=== PATIENT | male | born 1955 | race Caucasian/White ===

== ENCOUNTER 2016-10-01 10:38 | Outpatient (CLI) | payer MEDICARE, BC ==
[~2016-10-01] VITALS: Ht 180.3 cm; Wt 83.6 kg
--- NOTE | ~2016-10-01 | HEMODYNAMI ---
PATIENT:LIOR CARLTON MEDICAL RECORD: [id number] : 51 LOCATION:[facility] ADMISSION DATE: 10/01/16 Generatedon:10/01/201613:41 Patient name: LIOR CARLTON Patient #: [id number] SSN: : 1955 Date of study: 10/01/2016 Page: Of Hemodynamic Procedure Report Patient Data Patient Demographics Procedure consent was obtained First Name: LIOR Gender: Male Last Name: BIANKA : 1955 Patient #: [id number] Age: 61 year(s) Race: Unknown Additional ID: [id number] Contact details [address]: [address] [place] [address] State: [place] City: [place] Zip code: [address] Admission Admission Data Admission Date: 10/01/2016 Admission Time: 10:38 Height (in.): 71 BSA: 2.04 (m2) Height (cm.): 180.34 BMI: 25.66 (kg/m2) Weight (lbs.): 184 Weight (kg.): 83.46 Lab Results Lab Result Date: 10/01/2016 Lab Result Time: 0:00 Biochemistry Name Units Result Min Max BUN mg/dl 9 --(*---)-- 7 18 Creatinine mg/dl 0.8 --(-*--)-- 0.6 1.3 CBC Name Units Result Min Max Hemoglobin g/dl 13.9 --(*---)-- 13.5 17.5 Procedure Procedure Types Cath Procedure Diagnostic Procedure LHC LHC w/Coronaries PCI Procedure Coronary Stent Initial Miscellaneous Procedures Moderate Sedation up to 30 minutes Procedure Description Procedure Date Procedure Date: 10/01/2016 Procedure Start Time: 13:07 Procedure End Time: 13:40 Procedure Staff Name Function Kyle Kerr MD Performing Physician Keshav Torres RT Scrub Priyanka Camacho RN Nurse Hira Jordan RT Monitor Procedure Data Cath Procedure Fluoroscopy Diagnostic fluoroscopy Total fluoroscopy Time: 4.3 time: 4.3 min min Diagnostic fluoroscopy Total fluoroscopy dose: 781 dose: 781 mGy mGy Contrast Material Contrast Material Type Amount (ml) Isovue 300 133 Entry Location Entry Primary Successful Side Size Upsize Upsize Entry Closure Succes sful Closure Location (Fr) 1 (Fr) 2 (Fr) Remarks Device Remarks Femoral Right 5 Fr 6 Fr Exoseal artery Short Estimated blood loss: 10 ml Diagnostic catheters Device Type Used For End Catheter Placement Cordis 5Fr JL 4.0 Coronary Catheter (MP) Angiography Cordis 5Fr 3DRC Catheter Coronary (MP) Angiography Cordis 5Fr Pigtail LV Angiography Catheter (MP) Procedure Complications No complications Procedure Medications Medication Administration Route Dosage Oxygen NC 2 l/min Heparin Flush Bag added to field 2 bags (1000units/500ml NS) Lidocaine 2% added to field 20 Versed I.V. 1 mg Fentanyl I.V. 50 mcg Versed I.V. 1 mg Fentanyl I.V. 50 mcg Versed I.V. 1 mg Fentanyl I.V. 50 mcg Heparin Bolus I.V. 8300 units Plavix P.O. 600 mg Hemodynamics Rest BSA: 2.04 (m2) O2 Consumption: Estimated: 226.29 (ml/min) O2 Consumption indexed : Estimated:110.93 (ml/min/m) Heart Rate: 54 (bpm) Pressure Samples Time Site Value (mmHg) Purpose Heart Use Rate(bpm) 13:15 LV 188/8,25 Snapshot 54 Gradients Valve Time Site Site Mean SEP/DFP Peak To Heart Use 1 2 (mmHg) (sec/min) Peak Rate (mmHg) (bpm) Aortic 13:16 LV AO 58 Snapshots Pre Cath Intra NCS Post Cath Vital Signs Time Heart Resp SPO2 etCO2 [id number] NIBP (mmHg) Rhythm Pain Sedation Rate (ipm) (%) (mmHg) (mmHg) Status Level (bpm) 12:55:37 58 20 98 0 0 173/93(106) NSR 0 (11) 10(A) , No pain 12:59:59 55 12 98 0 0 166/90(131) NSR 0 (11) 10(A) , No pain 13:04:21 53 18 96 0 0 144/82(96) NSR 0 (11) 10(A) , No pain 13:08:33 50 16 95 0 0 122/83(99) NSR 0 (11) 10(A) , No pain 13:13:26 54 17 99 0 0 167/97(148) NSR 0 (11) 9(A) , No pain 13:17:44 53 14 96 0 0 170/91(157) NSR 0 (11) 9(A) , No pain 13:22:04 51 16 95 0 0 142/85(114) NSR 0 (11) 9(A) , No pain 13:26:18 54 16 95 0 0 144/80(123) NSR 0 (11) 9(A) , No pain 13:30:31 55 16 95 0 0 133/82(104) NSR 0 (11) 9(A) , No pain 13:32:09 53 16 96 0 0 127/85(104) NSR 0 (11) 10(A) , No pain 13:37:08 52 11 95 0 0 Measuring NSR 0 (11) 10(A) , No pain 13:37:14 52 11 95 0 0 149/86(124) NSR 0 (11) 10(A) , No pain Medications Time Medication Route Dose Verified Delivered Reason Notes Effectiveness by by 12:54:41 Oxygen NC 2 Kyle Priyanka Per physician l/min Dylan Camacho RN 12:54:50 Heparin Flush added 2 Kyle Kyle used for Bag to bags Dylan Kerr MD procedure (1000units/500ml field NS) 12:54:58 Lidocaine 2% added 20ml Kyle Kyle used for to vial Dylan Kerr MD procedure field 13:06:09 Versed I.V. 1 mg Kyle Priyanka for sedation Dylan Camacho RN 13:06:13 Fentanyl I.V. 50 Kyle Priyanka for sedation mcg Dylan Camacho RN 13:08:21 Versed I.V. 1 mg Kyle Priyanka for sedation Dylan Camacho RN 13:08:29 Fentanyl I.V. 50 Kyle Priyanka for sedation mcg Dylan Camacho RN 13:10:38 Versed I.V. 1 mg Kyle Priyanka for sedation Dylan Camacho RN 13:10:41 Fentanyl I.V. 50 Kyle Priyanka for sedation mcg Dylan Camacho RN 13:22:17 Heparin Bolus I.V. 8300 Kyle Priyanka for dose units Dylan Camacho RN anticoagulation verified with dr kerr 13:34:51 Plavix P.O. 600 Kyle Mathew for mg Dylan Camacho RN antiplatelet therapy Procedure Log Time Note 12:41:03 ACC Patient presents with Stable Angina CCS Anginal Class 2--Slight limitation of ordinary activity. 12:41:05 Diagnostic Cath status Elective 12:41:07 Keshav Torres RT(R) sent for patient. Start room use. 12:41:09 Time tracking: Regular hours 12:41:14 Plan of Care:Hemodynamics will remain stable., Cardiac rhythm will remain stable., Comfort level will be maintained., Respiratory function will remain adequate., Patient/ family verbilizes understanding of procedure., Procedure tolerated without complication., Recovers from procedure without complications.. 12:52:05 Patient received from Pre/Post Procedure Room to CCL 1 Alert and oriented. Tansferred to table in Supine position. 12:52:06 Warm blankets applied, and gala hugger turned on for patient comfort. 12:52:07 Correct patient and procedure confirmed by team. 12:52:08 Signed procedure consent form obtained from patient. 12:52:08 ECG and BP/O2 sat monitors applied to patient. 12:54:27 Vital chart was started 12:54:41 Oxygen 2 l/min NC was given by Priyanka Camacho RN; Per physician; 12:54:50 Heparin Flush Bag (1000units/500ml NS) 2 bags added to field was given by Kyle Kerr MD; used for procedure; 12:54:58 Lidocaine 2% 20ml vial added to field was given by Kyle Kerr MD; used for procedure; 13:02:10 Rhythm: sinus rhythm 13:02:12 Full Disclosure recording started 13:04:20 H&P Date Dictated: 10/01/2016 New H&P dictated by physician.. 13:04:25 Pre-procedure instructions explained to patient. 13:04:26 Pre-op teaching completed and patient verbalized understanding. 13:04:27 Family in waiting room. 13:04:28 Patient NPO since Midnight. 13:04:31 Is the patient allergic to Iodine/contrast media? No. 13:04:38 Is patient on blood thinner?No 13:04:44 ACC The patient was administered the following blood thiners within the last 24 hours: None 13:04:53 Patient diabetic? No. 13:04:56 Previous problem with sedation/anesthesia? No ? 13:04:57 Snore? Yes 13:04:59 Sleep apnea? Yes 13:05:00 Deviated septum? No 13:05:01 Opens mouth fully? Yes 13:05:03 Sticks out tongue? Yes 13:05:08 Airway obstruction? Yes COPD 13:05:14 Dentures? No ? 13:05:16 Pre procedure: right dorsailis pedis pulse 1+ Palpable, but thready & weak; easily obliterated 13:05:19 Modified Wan's test Ulnar > 7 seconds. 13:05:26 FAILED ALLENS 13:05:30 Patient pain scale 0/10 ?. 13:05:35 IV patent on arrival in left forearm with 0.9% NaCl at [facility]. 13:05:38 Lab results completed and on chart. 13:05:44 Right groin area was prepped with chlora-prep and draped in sterile fashion 13:05:45 Alarms reviewed by R. N. 13:05:45 Sharps counted by scrub and verified by R.N. 13:05:46 --------ALL STOP TIME OUT------ 13:05:47 Final Timeout: patient, procedure, and site verified with staff and physician. All members of the team are in agreement. 13:05:50 Right groin site verified by team. 13:05:56 Physical assessment completed. ASA score P 2 - A patient with mild systemic disease as per Kyle Kerr MD. 13:06:00 Sedation plan: IV Moderate Sedation Versed, Fentanyl 13:06:09 Versed 1 mg I.V. was given by Priyanka Camacho RN; for sedation; 13:06:13 Fentanyl 50 mcg I.V. was given by Priyanka Camacho RN; for sedation; 13:07:00 Zero performed for pressure channel P1 13:07:25 Use device set Femoral Dx 13:07:27 Tegaderm 4 x 4 opened to sterile field. 13:07:29 Acist Hand Control opened to sterile field. 13:07:29 Acist Manifold opened to sterile field. 13:07:30 Acist Syringe opened to sterile field. 13:07:31 Bag Decanter opened to sterile field. 13:07:31 Medline Cath Pack opened to sterile field. 13:07:31 Terumo 5Fr [place] Sheath opened to sterile field. 13:07:32 St Kelvin 260cm J .035 wire opened to sterile field. 13:07:34 Diagnostic Infinity 5Fr Multipack catheter opened to sterile field. 13:07:42 Procedure started. 13:07:45 Local anesthetic to right femoral artery with Lidocaine 2% by Kyle Kerr MD.INITIAL ACCESS ONLY 13:08:21 Versed 1 mg I.V. was given by Priyanka Camacho RN; for sedation; 13:08:29 Fentanyl 50 mcg I.V. was given by Priyanka Camacho RN; for sedation; 13:09:54 A 5 Fr sheath was inserted into the Right Femoral artery 13:10:05 A Cordis 5Fr JL 4.0 Catheter (MP) was advanced over the wire and used for Coronary Angiography. 13:10:06 Zero performed for pressure channel P1 13:10:08 Zero performed for pressure channel P1 13:10:10 Zero performed for pressure channel P1 13:10:13 Zero performed for pressure channel P1 13:10:38 Versed 1 mg I.V. was given by Priyanka Camacho RN; for sedation; 13:10:41 Fentanyl 50 mcg I.V. was given by Priyanka Camacho RN; for sedation; 13:10:58 LCA angiography performed. 13:12:07 Catheter exchanged over wire. 13:12:12 A Cordis 5Fr 3DRC Catheter (MP) was advanced over the wire and used for Coronary Angiography. 13:12:38 Lab Result : Hemoglobin 13.9 g/dl 13:12:38 Lab Result : Creatinine 0.8 mg/dl 13:12:38 Lab Result : BUN 9 mg/dl 13:13:04 Patient Height : 71 inches 13:13:07 Patient Weight : 184 lbs 13:13:17 Baseline sample Acquired. 13:13:49 RCA angiography performed. 13:14:37 Catheter exchanged over wire. 13:14:41 Zero performed for pressure channel P1 13:14:46 Zero performed for pressure channel P1 13:14:51 Zero performed for pressure channel P1 13:15:10 A Cordis 5Fr Pigtail Catheter (MP) was advanced over the wire and used for LV Angiography. 13:15:54 LV angiography performed. 13:15:55 LV gram done using ZELAYA 13:16:00 Injector settings: Ml/sec: 10, Volume: 20, 13:16:02 LV hemodynamics recorded. 13:16:26 EF : 45 % 13:16:40 Catheter exchanged over wire. 13:17:20 Terumo 6Fr [place] Sheath opened to sterile field. 13:17:20 CelePostW [place] 2 J-tip 300cm 0.014 guide wir opened to sterile field. 13:17:21 NuggetaixCompak Inflation Kit opened to sterile field. 13:17:21 High Pressure Extension Tubing (Kerr) opened to sterile field. 13:17:47 Cordis 6FR XBLAD 3.5 guide catheter opened to sterile field. 13:19:33 Sheath upsized to a 6 Fr Short. 13:19:43 6 Fr XBLAD 3.5 guide catheter was inserted over the wire 13:19:53 ACC PCI Site: pLAD has 80% stenosis. 13:19:55 ACC Pre-intervention HEIDY Flow is 3. 13:21:17 BMW wire advanced. 13:22:17 Heparin Bolus 8300 units I.V. was given by Priyanka Camacho RN; for anticoagulation; dose verified with dr kerr 13:24:18 Wire advanced across lesion. 13:27:22 Inflation Number: 1 A Medtronic Integrity 3.0 X 22 stent was prepped and advanced across the Prox LAD. The stent was deployed at 14 [place] for 0:10 (min:sec). 13:29:48 Cordis 6Fr Exoseal opened to sterile field. 13:30:31 ACC Post-intervention HEIDY Flow is 3. 13:30:32 Stent catheter was removed intact over wire. 13:30:33 Wire removed. 13:30:33 Guide catheter removed. 13:30:44 Sheath removed intact; hemostasis achieved with Exoseal to the Right Femoral artery. 13:30:46 Procedure ended.(Physican Out) 13:31:03 Fluoroscopy time 04.30 minutes. 13:31:07 Fluoroscopy dose: 781 mGy 13:31:07 Flurop Dose total: 781 13:31:14 Contrast amount:Isovue 300 133ml. 13:31:21 Sharps counted by scrub and verified by R.N. 13:31:24 Insertion/operative site no bleeding no hematoma. 13:31:27 Post-op/insertion site Right Femoral artery dressed using a 4 x 4 and Tegaderm. 13:31:28 Post Procedure Pulses reassessed and unchanged 13:31:31 Post-procedure physical assessment completed. ASA score P 2 - A patient with mild systemic disease as per Kyle Kerr MD. 13:31:33 Post procedure rhythm: unchanged. 13:31:36 Estimated blood loss: 10 ml 13:31:37 Post procedure instruction explained to patient.Patient verbalizes understanding. 13:31:38 Patient needs reinforcement of post procedure teaching. 13:31:47 Procedure type changed to Cath procedure, Diagnostic procedure, LHC, LHC w/Coronaries, PCI procedure, Coronary Stent Initial, Miscellaneous Procedures, Moderate Sedation up to 30 minutes 13:31:51 Procedure Complication : No complications 13:33:52 Procedure and supply charges have been captured, reviewed, submitted and are correct. 13:34:51 Plavix 600 mg P.O. was given by Priyanka Camacho RN; for antiplatelet therapy; 13:40:09 Vital chart was stopped 13:40:09 See physician's report for complete and final results. 13:40:11 Report given to Pre/Post Procedure Room. 13:40:27 Patient transfered to Pre/Post Procedure Room with Stretcher. 13:40:29 Procedure ended. 13:40:29 Full Disclosure recording stopped 13:40:38 ACC-PCI Only Patient was given prescriptions, or instructed by Kyle Kerr MD to start/continue the following medications upon discharge: Plavix 13:40:40 End room use (Document Last) Intervention Summary Intervention Notes Time ActionType Lesion and Equipment Action# Pressure Duration Attributes Used 13:27:22 Place stent Prox LAD Medtronic 1 14 00:10 Integrity 3.0 X 22 stent Device Usage Item Name Manufacture Quantity Catalog Hospital Part Current Minimal L ot# / Number Charge Number Stock Stock Serial# Code Tegaderm 4 3M 1 [id number] [id number] 432953 5 x 4 Acist Hand Acist 1 95324 811368 218013 274693 5 DraftKings Acist Acist 1 83344 978460 605168 299263 5 Manifold Medical Systems Inc Acist Acist 1 22409 022592 037959 588141 20 Syringe Medical Systems Inc Bag Microtek 1 2002S 536818 45670 537780 5 Decanter Medical Inc. Medline Cardinal 1 [id number] 824210 73887 743709 5 Cath Pack Health Terumo 5Fr Terumo 1 [id number] 988778 670079 825722 [address] Kelvin 1 [id number] 787840 261069 911136 30 260cm J .035 wire Diagnostic Cardinal 1 [id number] 326554 38062 828139 30 Infinity Health 5Fr Multipack catheter Cordis 5Fr Cardinal 1 [id number] 5 JL 4.0 Health Catheter (MP) Cordis 5Fr Cardinal 1 434121 5 3DRC Health Catheter (MP) Cordis 5Fr Cardinal 1 840848 5 Pigtail Health Catheter (MP) Terumo 6Fr Terumo 1 [id number] 389451 565105 676826 40 [place] Sheath Driscoll BMW Driscoll 1 [id number] 450862 499478 396621 5 [place] 2 Vascular J-tip 300cm 0.014 guide wir Merit Merit 1 [id number] 032714 078325 465610 15 BasixCompak Medical Inflation Kit High Merit 1 [id number] 307836 77429 318076 10 Pressure Medical Extension Tubing (Kerr) Cordis 6FR Cardinal 1 [id number] 367129 430748 536579 10 XBLAD 3.5 Health guide catheter Medtronic Medtronic 1 [id number] 853975 255912 211354 1 0 [id number] Integrity 3.0 X 22 stent Cordis 6Fr Cardinal 1 [id number] 782765 117920 479125 10 [facility] Livestream Signature Audit [place] Stage Time Signature Unsigned Intra-Procedure 10/01/2016 Hira Jordan 1:40:57 PM RT(R) Signatures Monitor : Hira Jordan RT Signature : Date : Time : [facility] [address] [facility] [place] [address]
[2016-10-01] MEDS ORDERED: DIOVAN160 MG PO (11:25)
[2016-10-01] MEDS ORDERED: NEXIUM40 MG PO (11:25)
[2016-10-01] MEDS ORDERED: XYZAL5 MG PO (11:25)
[2016-10-01] MEDS ORDERED: MOBIC7.5 MG PO (11:26)
[2016-10-01] MEDS ORDERED: BENTYL10 MG PO (11:26)
[2016-10-01] MEDS ORDERED: BAYER CHEWABLE81 MG PO (11:27)
[2016-10-01 11:34] VITALS: BP 148/85; Ht 180.3 cm; Wt 83.6 kg
[2016-10-01 11:53] LABS: BASOPHILS 0.3 % (0.0-2.0); CALC OSMOLALITY 283 mosm/kg (275-300); CARBON DIOXIDE 23.9 mmol/L (21.0-32.0); CHLORIDE - SERUM 108 mmol/L (98-107); CREATININE - SERUM 0.8 mg/dL (0.6-1.3); EOSINOPHILS 2.5 % (0-7); GLUCOSE 93 mg/dL (74-106); HEMATOCRIT 42.3 % (42.0-54.0); HEMOGLOBIN 13.9 g/dL (13.5-17.5); IMMATURE GRANULOCYTES 0.3 % (0-5); LYMPHOCYTES 28.5 % (15-50); MCH 33.9 pg (26.0-34.0); MCHC 32.9 g/dL (31.0-37.0); MCV 103.2 fL (80.0-100.0); MEAN PLATELET VOLUME 10.2 fL (7.4-10.4); MONOCYTES 11.9 % (2-11); NEUTROPHILS 56.5 % (40-80); PLATELET COUNT 236 10x3/uL (130-400); RDW 12.8 % (11.5-14.5); SODIUM 143 mmol/L (136-145); WBC 7.7 10x3/uL (4.8-10.8); eGFR NON AFRICAN AMERICAN > 90 mL/min (90-120)
[2016-10-01 11:54] LABS: UREA NITROGEN 9 mg/dL (7-18)
[2016-10-01] MEDS ORDERED: PLAVIX75 MG PO (13:46)
--- NOTE | 2016-10-01 15:31 | NUR ---
1400-RIGHT GROIN CDI, NO HEMATOMA OR BLEEDING NOTED, SOFT TO TOUCH 1445-NO CHANGES IN GROIN, DENIES CHEST PAIN
--- NOTE | 2016-10-21 08:17 | HP ---
PATIENT: LIOR LINN MEDICAL RECORD: [id number] ACCOUNT: [id number] LOCATION:[place] : 51 ADMISSION DATE: 10/01/16 HISTORY AND PHYSICAL EXAMINATION DATE OF SERVICE: 10/01/2016 HISTORY OF PRESENT ILLNESS: Mr. Linn is a 61-year-old gentleman recently seen in clinic. He has a long history of COPD. He has been having worsening shortness of breath. His symptoms seemed different from his COPD. A recent stress test was performed, which revealed inferior wall ischemia. He was subsequently referred for cardiac catheterization. PAST MEDICAL HISTORY: 1. COPD. 2. Hypertension. MEDICATIONS: Aspirin daily and Nexium 20 mg daily. HABITS: He continues to smoke a pack per day. PHYSICAL EXAMINATION: VITAL SIGNS: Blood pressure is 140/82, pulse is 84. NECK: No JVD or bruit. CHEST: Clear to auscultation bilaterally. No wheezes or rales. CARDIAC: Regular rate and rhythm. No S4, no S3, no murmur. ABDOMEN: Soft, nontender. No masses. No bruits. EXTREMITIES: Pulses 2+ bilaterally. No edema. IMPRESSION: 1. Angina. With concerning symptoms of shortness of breath, may very well be an anginal variant. His recent stress test revealed inferior wall ischemia. PLAN: We will proceed with cardiac catheterization. TRANSINT:[id number] Voice Confirmation ID: [id number] DOCUMENT ID: [id number] LILIAN CA M.D. at 0817 CC: [id number] DICTATION DATE: 10/01/16 1341 PRECISION ASSEMBLY INSPECTOR: 10/01/16 1512 [facility] CLI 10/01/16 [place] [address] [place] [address]
--- NOTE | 2016-10-21 08:17 | OP ---
PATIENT NAME: LIOR CARLTON MEDICAL RECORD: [id number] :51 LOCATION:[facility] ADMISSION DATE: SURGEON: LILIAN CA M.D. DATE OF OPERATION: 10/01/2016 REFERRING PHYSICIAN: Dr. Segundo Muir at [place], [place]. PROCEDURES PERFORMED: 1. Selective coronary angiography. 2. Left heart catheterization with ventriculogram. 3. PTCA and stent placed in LAD. INDICATION: A 61-year-old gentleman presents with symptoms of angina. Recent Cardiolite stress test revealed inferior ischemia. EQUIPMENT USED: Diagnostic 5-Filipino JL4, Panda right, pigtail catheter. INTERVENTION: 6-Filipino XB LAD guide, BMW guide wire, 3.0 x 22 mm Integrity stent. TECHNIQUE: A 5-Filipino sheath was inserted in retrograde fashion in the right common femoral artery. Next, selective coronary angiography was performed in standard views using 5-Filipino JL4 and Panda right. Left heart catheterization performed using pigtail catheter. CORONARY ANATOMY: 1. Left main: Left main trunk is moderate in caliber. It gives rise to the LAD and circumflex. There is no obstruction. 2. LAD: This is a large caliber vessel extending to the apex. The proximal vessel has an ulcerated 90% stenosis. 3. Circumflex: This vessel is moderate in caliber. It is a smooth-walled vessel and appears angiographically normal. 4. Right coronary: This vessel is moderate in caliber and dominant. The mid to distal segment demonstrates a very long 90% stenosis. The distal vessels have good caliber and has no obstruction. 5. Left ventricle: Left ventricle is normal in size. There is mild LV dysfunction noted. Estimated ejection fraction of 45%. DESCRIPTION OF INTERVENTION: A 6-Filipino sheath was inserted in retrograde fashion in the right common femoral artery. Next, 100 units per kilogram of heparin was infused. A 6-Filipino XB LAD guide was advanced and engaged in the left main coronary artery. Next, a BMW guide wire was placed in the distal LAD. A 3.0 x 22 mm Integrity stent was placed across the stenosis and deployed at 14 atmospheres. Injection reveals stent to be widely patent with 0% residual stenosis. There is marked improvement in distal flow. At this point, the wire and guide were removed. IMPRESSION: Successful percutaneous transluminal coronary angioplasty and stent to the LAD with 0% residual stenosis. PLAN: I will stage him and bring him back for stenting to the right coronary artery in 1 week. TRANSINT:[id number] Voice Confirmation ID: [id number] DOCUMENT ID: [id number] OPERATIVE REPORT [id number] LIOR CARLTON TIMOTHY E M.D. at 0817 CC: [id number] DICTATION DATE: 10/01/16 1339 J2EE SOFTWARE ENGINEER: 10/01/16 1756 [facility] CLI 10/01/[address] [address]
== END 2016-10-01 18:00 | disposition home or self-care (01) ==
LOC: D.CATH 10:38
PROVIDERS: Internal Medicine Cardiovascular Disease
DX: I25.119 Atherosclerotic heart disease of native coronary artery with unspecified angina pectoris (principal); J44.9 Chronic obstructive pulmonary disease, unspecified; F17.200 Nicotine dependence, unspecified, uncomplicated; I10 Essential (primary) hypertension; Z79.82 Long term (current) use of aspirin; Z79.899 Other long term (current) drug therapy

== ENCOUNTER 2016-10-08 11:11 | Outpatient (CLI) | payer MEDICARE, BC ==
[~2016-10-08] VITALS: Ht 180.3 cm; Wt 84.1 kg
--- NOTE | ~2016-10-08 | HEMODYNAMI ---
PATIENT:LIOR CARLTON MEDICAL RECORD: [id number] : 51 LOCATION:[facility] ADMISSION DATE: 10/08/16 Generatedon:10/08/201614:17 Patient name: LIOR CARLTON Patient #: [id number] SSN: : 1955 Date of study: 10/08/2016 Page: Of Hemodynamic Procedure Report Patient Data Patient Demographics Procedure consent was obtained First Name: LIOR Gender: Male Last Name: BIANKA : 1955 Patient #: [id number] Age: 61 year(s) Race: Additional ID: [id number] Contact details [address]: [address] [place] [address] State: [place] City: [place] Zip code: [address] Admission Admission Data Admission Date: 10/08/2016 Admission Time: 11:11 Lab Results Lab Result Date: 10/08/2016 Lab Result Time: 0:00 Biochemistry Name Units Result Min Max Creatinine mg/dl 1 --(--*-)-- 0.6 1.3 CBC Name Units Result Min Max Hemoglobin g/dl 14.4 --(*---)-- 13.5 17.5 Procedure Procedure Types Cath Procedure PCI Procedure Coronary Stent Initial Miscellaneous Procedures Moderate Sedation up to 45 minutes Procedure Description Procedure Date Procedure Date: 10/08/2016 Procedure Start Time: 13:49 Procedure End Time: 14:14 Procedure Staff Name Function Kyle Kerr MD Performing Physician Lyla Olmos RT Scrub Giorgi Pandey RN Nurse William Steward RT Monitor Hira Jordan RT Monitor Mino Becker RN Mechanic Driver Procedure Data Cath Procedure Fluoroscopy Diagnostic fluoroscopy Total fluoroscopy Time: 5.7 time: 5.7 min min Diagnostic fluoroscopy Total fluoroscopy dose: 265 dose: 265 mGy mGy Contrast Material Contrast Material Type Amount (ml) Isovue 300 52 Entry Location Entry Primary Successful Side Size Upsize Upsize Entry Closure Succes sful Closure Location (Fr) 1 (Fr) 2 (Fr) Remarks Device Remarks Femoral Left 6 Fr Exoseal artery Short Estimated blood loss: 10 ml Procedure Complications No complications Procedure Medications Medication Administration Route Dosage Oxygen NC 2 l/min Lidocaine 2% added to field 20 Heparin Flush Bag added to field 2 bags (1000units/500ml NS) 0.9% NaCl I.V. 100 ml/hr Versed I.V. 1 mg Fentanyl I.V. 50 mcg Heparin Bolus I.V. 8500 units Nitroglycerin IC/IA I.C. 100 mcg Versed I.V. 1 mg Fentanyl I.V. 50 mcg Versed I.V. 1 mg Fentanyl I.V. 50 mcg Hemodynamics Rest HGB: 14.4 (g/dl) Heart Rate: 50 (bpm) Snapshots Pre Cath Intra NCS Post Cath Vital Signs Time Heart Resp SPO2 etCO2 WG4ryrz NIBP (mmHg) Rhythm Pain Sedation Rate (ipm) (%) (mmHg) (mmHg) Status Level (bpm) 13:39:00 51 17 97 0 0 153/82(129) NSR 0 (11) 10(A) , No pain 13:43:17 54 15 95 0 0 141/78(93) NSR 0 (11) 10(A) , No pain 13:47:36 47 18 95 0 0 135/75(120) NSR 0 (11) 10(A) , No pain 13:51:51 46 17 96 0 0 118/74(86) NSR 0 (11) 9(A) , No pain 13:55:58 57 16 96 0 0 122/69(92) NSR 0 (11) 9(A) , No pain 14:00:06 60 18 94 0 0 125/79(99) NSR 0 (11) 9(A) , No pain 14:04:16 57 15 96 0 0 131/74(108) NSR 0 (11) 9(A) , No pain 14:08:28 55 16 98 0 0 138/75(117) NSR 0 (11) 10(A) , No pain 14:12:42 53 11 97 0 0 132/79(95) NSR 0 (11) 10(A) , No pain Medications Time Medication Route Dose Verified Delivered Reason Notes Effectiveness by by 13:41:37 Oxygen NC 2 Kyle Buffie used for l/min Dylan Pandey rn procedure 13:41:44 Lidocaine 2% added 20ml Kyle Kyle for local to vial Dylan Kerr MD anesthetic field 13:41:50 Heparin Flush added 2 Kyle Kyle used for Bag to bags Dylan Kerr MD procedure (1000units/500ml field NS) 13:42:22 0.9% NaCl I.V. 100 Kyle Buffie Per physician ml/hr Dylan Pandey RN 13:43:14 Versed I.V. 1 mg Kyle Buffie for sedation Dylan Pandey RN 13:43:19 Fentanyl I.V. 50 Kyle Buffie for sedation mcg Dylan Pandey RN 13:47:23 Versed I.V. 1 mg Kyle Buffie for sedation Dylan Pandey RN 13:47:27 Fentanyl I.V. 50 Kyle Buffie for sedation mcg Dylan Pandey RN 13:54:27 Heparin Bolus I.V. 8500 Kyle Buffie for verifi ed units Dylan Pandey RN anticoagulation with dr kerr 13:54:38 Nitroglycerin I.C. 100 Kyle Kyle for IC/IA mcg Dylan Kerr MD vasodilation 13:56:28 Versed I.V. 1 mg Kyle Buffie for sedation Dyaln Pandey RN 13:56:32 Fentanyl I.V. 50 Kyle Buffie for sedation mcg Dylan Pandey RN Procedure Log Time Note 13:15:35 Mino Becker RN sent for patient. Start room use. 13:28:36 Time tracking: Regular hours 13:28:40 Plan of Care:Hemodynamics will remain stable., Cardiac rhythm will remain stable., Comfort level will be maintained., Respiratory function will remain adequate., Patient/ family verbilizes understanding of procedure., Procedure tolerated without complication., Recovers from procedure without complications.. 13:29:37 Patient received from Pre/Post Procedure Room to CCL 1 Alert and oriented. Tansferred to table in Supine position. 13:29:38 Warm blankets applied, and gala hugger turned on for patient comfort. 13:29:38 Correct patient and procedure confirmed by team. 13:29:40 Signed procedure consent form obtained from patient. 13:29:40 ECG and BP/O2 sat monitors applied to patient. 13:29:41 Full Disclosure recording started 13:37:48 Vital chart was started 13:39:29 Baseline sample Acquired. 13:39:34 Rhythm: sinus rhythm 13:39:53 H&P Date Dictated: 10/08/2016 New H&P dictated by physician.. 13:39:54 Pre-procedure instructions explained to patient. 13:39:54 Pre-op teaching completed and patient verbalized understanding. 13:39:55 Family in waiting room. 13:39:57 Patient NPO since Midnight. 13:39:59 Is the patient allergic to Iodine/contrast media? No. 13:40:01 Is patient on blood thinner?Yes 13:40:07 ACC The patient was administered the following blood thiners within the last 24 hours: ACCPlavix 13:40:19 Patient diabetic? No. 13:40:29 Previous problem with sedation/anesthesia? No ? 13:40:31 Snore? Yes 13:40:33 Sleep apnea? Yes 13:40:35 Deviated septum? No 13:40:38 Opens mouth fully? Yes 13:40:39 Sticks out tongue? Yes 13:40:42 Airway obstruction? Yes COPD 13:40:51 Dentures? No ? 13:40:59 Pre procedure: left dorsailis pedis pulse 1+ Palpable, but thready & weak; easily obliterated 13:41:02 Patient pain scale 0/10 ?. 13:41:04 Lab results completed and on chart. 13:41:09 Left groin area was prepped with chlora-prep and draped in sterile fashion 13:41:10 Alarms reviewed by R. N. 13:41:10 Sharps counted by scrub and verified by R.N. 13:41:12 --------ALL STOP TIME OUT------ 13:41:12 Final Timeout: patient, procedure, and site verified with staff and physician. All members of the team are in agreement. 13:41:15 Right groin site verified by team. 13:41:19 Physical assessment completed. ASA score P 2 - A patient with mild systemic disease as per Kyle Kerr MD. 13:41:23 Sedation plan: IV Moderate Sedation Versed, Fentanyl 13:41:37 Oxygen 2 l/min NC was given by Giorgi Pandey RN; used for procedure; 13:41:44 Lidocaine 2% 20ml vial added to field was given by Kyle Kerr MD; for local anesthetic; 13:41:50 Heparin Flush Bag (1000units/500ml NS) 2 bags added to field was given by Kyle Kerr MD; used for procedure; 13:42:22 0.9% NaCl 100 ml/hr I.V. was given by Giorgi Pandey RN; Per physician; 13:43:14 Versed 1 mg I.V. was given by Giorgi Pandey RN; for sedation; 13:43:19 Fentanyl 50 mcg I.V. was given by Giorgi Pandey RN; for sedation; 13:44:05 Lab Result : Creatinine 1 mg/dl 13:44:05 Lab Result : Hemoglobin 14.4 g/dl 13:47:23 Versed 1 mg I.V. was given by Giorgi Pandey RN; for sedation; 13:47:27 Fentanyl 50 mcg I.V. was given by Giorgi Pandey RN; for sedation; 13:48:31 Zero performed for pressure channel P1 13:48:58 Medtronic Launcher 6Fr AR 1.0 guide catheter opened to sterile field. 13:49:03 Procedure started. 13:49:07 Local anesthetic to left femerol artery with Lidocaine 2% by Kyle Kerr MD.INITIAL ACCESS ONLY 13:49:43 A 6 Fr Short sheath was inserted into the Left Femoral artery 13:50:08 Use device set Femoral PCI 13:50:09 Tegaderm 4 x 4 opened to sterile field. 13:50:10 Acist Manifold opened to sterile field. 13:50:11 Merit BasixCompak Inflation Kit opened to sterile field. 13:50:12 St Kelvin 260cm J .035 wire opened to sterile field. 13:50:12 Terumo 6Fr [place] Sheath opened to sterile field. 13:50:13 Medline Cath Pack opened to sterile field. 13:50:13 Bag Decanter opened to sterile field. 13:50:14 Acist Hand Control opened to sterile field. 13:50:14 Acist Syringe opened to sterile field. 13:50:27 6 Fr ar 1 guide catheter was inserted over the wire 13:50:35 bmw wire advanced. 13:51:48 High Pressure Extension Tubing (Dylan) opened to sterile field. 13:54:27 Heparin Bolus 8500 units I.V. was given by Giorgi Pandey RN; for anticoagulation; verified with dr kerr 13:54:38 Nitroglycerin IC/IA 100 mcg I.C. was given by Kyle Kerr MD; for vasodilation; 13:55:42 Wire advanced across lesion. 13:56:28 Versed 1 mg I.V. was given by Giorgi Pandey RN; for sedation; 13:56:32 Fentanyl 50 mcg I.V. was given by Giorgi Pandey RN; for sedation; 13:58:01 Inflation number: 1 A [place] Sci Rowan 2.5 X 30 balloon was prepped and advanced across the Mid RCA, then inflated to 12 BEVERLY for 0:10 (min:sec). 13:58:23 Inflation number: 2 The [place] Sci Rowan 2.5 X 30 balloon was reinflated across the Mid RCA, to 12 BEVERLY for 0:10 (min:sec). 13:58:54 Balloon removed over the wire. 14:02:09 Inflation Number: 3 A Medtronic Integrity 3.0 X 30 stent was prepped and advanced across the Mid RCA. The stent was deployed at 15 BEVERLY for 0:10 (min:sec). 14:03:07 Stent catheter was removed intact over wire. 14:03:14 ACC PCI Site: mRCA has 90% stenosis. 14:03:16 ACC Pre-intervention HEIDY Flow is 3. 14:03:18 ACC Post-intervention HEIDY Flow is 3. 14:05:32 Inflation Number: 4 A Medtronic Integrity 3.0 X 30 stent was prepped and advanced across the Mid RCA. The stent was deployed at 15 BEVERLY for 0:10 (min:sec). 14:05:51 Stent catheter was removed intact over wire. 14:05:53 Guide catheter removed. 14:06:52 Cordis 6Fr Exoseal opened to sterile field. 14:06:59 Sheath removed intact; hemostasis achieved with Exoseal to the Left Femoral artery. 14:07:01 Procedure ended.(Physican Out) 14:11:11 Fluoroscopy time 05.70 minutes. 14:11:16 Flurop Dose total: 265 14:11:16 Fluoroscopy dose: 265 mGy 14:11:22 Contrast amount:Isovue 300 52ml. 14:11:25 Sharps counted by scrub and verified by R.N. 14:11:58 Vital chart was stopped 14:12:16 Insertion/operative site no bleeding no hematoma. 14:12:20 Post-op/insertion site Left Femoral artery dressed using a 4 x 4 and Tegaderm. 14:12:25 Post left femerol artery:stable, soft, clean and dry 14:12:27 Post Procedure Pulses reassessed and unchanged 14:12:30 Post-procedure physical assessment completed. ASA score P 2 - A patient with mild systemic disease as per Kyle Kerr MD. 14:12:32 Post procedure rhythm: unchanged. 14:12:34 Estimated blood loss: 10 ml 14:12:36 Post procedure instruction explained to patient.Patient verbalizes understanding. 14:12:36 Patient needs reinforcement of post procedure teaching. 14:14:10 Procedure type changed to Cath procedure, PCI procedure, Coronary Stent Initial, Miscellaneous Procedures, Moderate Sedation up to 45 minutes 14:14:11 Procedure and supply charges have been captured, reviewed, submitted and are correct. 14:14:15 Procedure Complication : No complications 14:14:35 See physician's report for complete and final results. 14:14:37 Report given to Pre/Post Procedure Room. 14:14:40 Patient transfered to Pre/Post Procedure Room with Stretcher. 14:14:43 Procedure ended. 14:14:43 Full Disclosure recording stopped 14:14:48 ACC-PCI Only Patient was given prescriptions, or instructed by Kyle Kerr MD to start/continue the following medications upon discharge: Plavix 14:14:49 End room use (Document Last) Intervention Summary Intervention Notes Time ActionType Lesion and Equipment Action# Pressure Duration Attributes Used 13:58:01 Inflate Mid RCA [place] 1 12 00:10 balloon Sci Rowan 2.5 X 30 balloon 13:58:23 Reinflate Mid RCA [place] 2 12 00:10 balloon Sci Rowan 2.5 X 30 balloon 14:02:09 Place stent Mid RCA Medtronic 3 15 00:10 Integrity 3.0 X 30 stent 14:05:32 Place stent Mid RCA Medtronic 4 15 00:10 Integrity 3.0 X 30 stent Device Usage Item Name Manufacture Quantity Catalog Number Hospital Part Current Mini unity hospital Lot# / Charge Number Stock Stock Serial# Code Medtronic Medtronic 1 [id number] 30939 638190 1 Launcher 6Fr AR 1.0 guide catheter Tegaderm 4 3M 1 [id number] 783871 762670 5 x 4 Acist Acist 1 00961 647595 132523 617385 5 Manifold Medical Systems Inc Merit Merit 1 [id number] 470101 892225 018270 15 BasixCompak Medical Inflation Kit [address] Kelvin St Kelvin 1 316031 900305 678168 565470 30 260cm J .035 wire Terumo 6Fr Terumo 1 [id number] 925885 575596 804474 40 [place] Sheath Medline Cardinal 1 [id number] 490011 14179 679607 5 Cath Pack Health Bag Microtek 1 2002S 519936 83355 182906 5 Decanter Medical Inc. Acist Hand Acist 1 88386 769856 147903 395881 5 Control Medical Systems Inc Acist Acist 1 11552 647456 796365 614574 20 Syringe Medical Systems Inc High Merit 1 [id number] 112123 99166 670471 10 Pressure Medical Extension Tubing (Kerr) [place] Sci [place] 1 [id number] 892932 358205 690564 1 [id number] Theravance 2.5 X 30 balloon Medtronic Medtronic 2 [id number] 952119 898179 941328 7 [id number] Integrity [id number] 3.0 X 30 stent Cordis 6Fr Cardinal 1 EX600 270295 572958 146481 10 [facility] Signature Audit Gruetli Laager Stage Time Signature Unsigned Intra-Procedure 10/08/2016 William Steward 2:17:51 PM RT(R) Signatures Monitor : William Steward RT Signature : Date : Time : Monitor : Hira Jordan RT Signature : Date : Time : [place] [id number] MERCED AR[place]O, MELISA [id number]
[~2016-10-08 11:11] MED LIST: BAYER CHEWABLE81 MG PO; BENTYL10 MG PO; DIOVAN160 MG PO; MOBIC7.5 MG PO; NEXIUM40 MG PO; PLAVIX75 MG PO; XYZAL5 MG PO
[2016-10-08 12:07] VITALS: BP 137/78; Ht 180.3 cm; Wt 84.1 kg
[2016-10-08 12:33] LABS: BASOPHILS 0.4 % (0.0-2.0); HEMOGLOBIN 14.4 g/dL (13.5-17.5); LYMPHOCYTES 32.9 % (15-50); MCH 33.6 pg (26.0-34.0); MCHC 32.7 g/dL (31.0-37.0); MCV 102.6 fL (80.0-100.0); MEAN PLATELET VOLUME 10.1 fL (7.4-10.4); MONOCYTES 14.9 % (2-11); NEUTROPHILS 49.8 % (40-80); PLATELET COUNT 235 10x3/uL (130-400); RBC 4.29 10x6/uL (4.20-6.10); RDW 12.6 % (11.5-14.5); WBC 5.6 10x3/uL (4.8-10.8)
[2016-10-08 12:46] LABS: CALC OSMOLALITY 281 mosm/kg (275-300); CALCIUM 9.1 mg/dL (8.5-10.1); CARBON DIOXIDE 27.8 mmol/L (21.0-32.0); CHLORIDE - SERUM 107 mmol/L (98-107); GLUCOSE 95 mg/dL (74-106); POTASSIUM - SERUM 4.2 mmol/L (3.5-5.1); SODIUM 142 mmol/L (136-145); UREA NITROGEN 10 mg/dL (7-18); eGFR NON AFRICAN AMERICAN 80 mL/min (90-120)
--- NOTE | 2016-10-08 14:47 | NUR ---
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 PTIS DROWSY, DENIES ANY C/O. SINUS PENNY ON MONITOR, RATE OF 52. BP 119/76, SAT IS 96%. PT DENIES ANY CHEST DISCOMFORT. 6 FR EXOSEAL CDI TO LEFT GROIN, AREA IS SOFT WITH NO BLEEDING OR HEMATOMA NOTED. CALL LIGHT IN REACH, INSTRUCTED PT TO CALL FOR NEEDS AND HE VERBALIZES UNDERSTANDING. AT BEDSIDE.
--- NOTE | 2016-10-08 15:10 | NUR ---
1440 DRESSING TO LEFT GROIN REMAINS CDI, NO BLEEDING OR HEMATOMA NOTED. PEDAL PULSES PALPABLE. VSS, PT DENIES ANY CHEST DISCOMFORT. AT BEDSIDE. SANDWICH AND PO FLIUDS SERVED. REINFORCED TEACHING TO KEEP LEFT LEG STRAIGHT AND HEAD TO PILLOW AND PT VERBALIZES UNDERSTANDING.
--- NOTE | 2016-10-08 15:15 | NUR ---
1515 PT DENIES ANY C/O. DRESSING TO LEFT GROIN IS CDI, NO BLEEDING OR HEMATOMA NOTED. PEDAL PULSES PALPABLE, VSS. SINUS PENNY RATE 56 ON MONITOR. AT BEDSIDE.
--- NOTE | 2016-10-08 18:50 | NUR ---
1820 HOB ELEVATED, PT DENIES ANY C/O. DRESSING TO LEFT GROIN REMAINS CDI. 1845 REVIEWED DC INSTRUCTIONS WITH PT AND WHO VERBALIZE UNDERSTANDING. IV DC'D WITH CATH INTACT AND PT IS DRESSING FOR DC TO HOME.
--- NOTE | 2016-10-08 18:52 | NUR ---
1900 PT HAS AMBULATED TO THE BATHROOM AND VOIDED QS. GROIN DRESSING REMAINS STABLE. PT ESCORTED TO PRIVATE AUTO VIA WC BY NURSE WITH DRIVING HIM HOME.
--- NOTE | 2016-10-21 08:17 | HP ---
PATIENT: LIOR LINN MEDICAL RECORD: [id number] ACCOUNT: [id number] LOCATION:[place] : 51 ADMISSION DATE: 10/08/16 HISTORY AND PHYSICAL EXAMINATION HISTORY OF PRESENT ILLNESS: Mr. Linn is a 61-year-old gentleman recently seen in clinic. He has had symptoms of accelerating angina. His stress test revealed inferior wall ischemia. He underwent cardiac catheterization. He underwent PTCA of the LAD this past week, returns today for completion of staged procedure. PAST MEDICAL HISTORY: Coronary artery disease. MEDICATIONS: Aspirin p.o. q. day and Plavix 75 mg a day. HABITS: He smokes a pack per day. PHYSICAL EXAMINATION: VITAL SIGNS: Blood pressure is 140/82 and pulse 84. NECK: No JVD or bruit. CHEST: Clear to auscultation bilaterally. No wheezes or rales or dullness to percussion at the bases. CARDIAC: Regular rate and rhythm. No S4, no S3, no murmur. ABDOMEN: Soft and nontender. No masses. No bruits. EXTREMITIES: Pulses 2+ bilaterally. No edema. IMPRESSION: Coronary artery disease, recently presenting with symptoms of accelerating angina. He had multivessel disease by angiogram. PLAN: Today, we will proceed with PTCA of the right coronary artery. TRANSINT:[id number] Voice Confirmation ID: [id number] DOCUMENT ID: [id number] LILIAN CA M.D. at 0817 CC: [id number] DICTATION DATE: 10/08/16 1341 ADHESIVE BANDAGE MACHINE OPERATOR: 10/08/16 1851 [facility] CLI 10/08/16 [place] [address] [place] [address]
--- NOTE | 2016-10-21 08:17 | OP ---
PATIENT NAME: LIOR CARLTON MEDICAL RECORD: [id number] :51 LOCATION:D.CAT ADMISSION DATE: SURGEON: LILIAN CA M.D. DATE OF OPERATION: 10/08/2016 PROCEDURES PERFORMED: PTCA and stent placed right coronary. INDICATION: A 61-year-old gentleman presents with angina. He returns today for completion of staged procedure. REFERRING PHYSICIAN: Dr. Segundo Muir at [place], [place]. EQUIPMENT USED: A 6-Indonesian AR1 guide, BMW guide wire, 2.5 x 30 mm [place] balloon, 3.0 x 30 mm Integrity stent, 3.0 x 30 mm Integrity stent. DESCRIPTION OF INTERVENTION: A 6-Indonesian sheath was inserted in retrograde fashion in the left common femoral artery. Next, 100 units per kilogram of heparin was infused. A 6-Indonesian AR1 guide was advanced and engaged in the right coronary artery. Next, a BMW guide wire was placed in the distal vessel. Injections revealed a long 80% to 90% stenosis followed in the mid third of the vessel. This was predilated 2.5 x 30 mm balloon at 10 atmospheres. Next, a 3.0 x 30 mm Integrity stent was placed at the junction of the mid and distal vessel deployed at 15 atmospheres. Next, additional 3.0 x 30 mm stent was placed at the junction of the proximal mid vessel with an overlapping fashion at the existing stent. This stent was deployed at 15 atmospheres as well. Injection revealed both stents to be widely patent with 0% residual stenosis. There was marked improvement in distal flow. At this point, the wire and guide were removed. IMPRESSION: Successful percutaneous transluminal coronary angioplasty and stent of the right coronary with 0% residual stenosis. TRANSINT:[id number] Voice Confirmation ID: [id number] DOCUMENT ID: [id number] LILIAN CA M.D. at 0817 CC: [id number] DICTATION DATE: 10/08/16 1413 ACCOUNT AUDITOR: 10/08/16 2325 [facility] CLI 10/08/16 [place] [address]
== END 2016-10-08 19:00 | disposition home or self-care (01) ==
LOC: D.CATH 11:11
PROVIDERS: Internal Medicine Cardiovascular Disease
DX: I25.110 Atherosclerotic heart disease of native coronary artery with unstable angina pectoris (principal); Z79.82 Long term (current) use of aspirin; Z79.02 Long term (current) use of antithrombotics/antiplatelets; F17.210 Nicotine dependence, cigarettes, uncomplicated

== ENCOUNTER 2017-11-11 11:41 | Outpatient (CLI) | payer MEDICARE, BC ==
[~2017-11-11] VITALS: Ht 180.3 cm; Wt 80.9 kg
--- NOTE | ~2017-11-11 | HEMODYNAMI ---
PATIENT:LIOR CARLTON MEDICAL RECORD: [id number] : 51 LOCATION:[facility] ADMISSION DATE: 11/11/17 Generatedon:11/11/201715:52 Patient name: LIOR CARLTON Patient #: [id number] SSN: : 1955 Date of study: 11/11/2017 Page: Of Hemodynamic Procedure Report Patient Data Patient Demographics Procedure consent was obtained First Name: LIOR Gender: Male Last Name: BIANKA : 1955 Patient #: [id number] Age: 62 year(s) Race: Additional ID: [id number] Contact details [address]: [address] [place] [address] State: [place] City: [place] Zip code: [address] Admission Admission Data Admission Date: 11/11/2017 Admission Time: 11:41 Admit Source: Other Insurance Payor: Medicare Lab Results Lab Result Date: 11/11/2017 Lab Result Time: 0:00 Biochemistry Name Units Result Min Max BUN mg/dl 12 --(-*--)-- 7 18 Creatinine mg/dl 0.8 --(-*--)-- 0.6 1.3 CBC Name Units Result Min Max Hemoglobin g/dl 15 --(-*--)-- 13.5 17.5 Procedure Procedure Types Cath Procedure Diagnostic Procedure [facility] w/Coronaries Sedation Charges Moderate Sedation up to 15 minutes Procedure Description Procedure Date Procedure Date: 11/11/2017 Procedure Start Time: 15:28 Procedure End Time: 15:50 Procedure Staff Name Function Kyle Richardson MD Performing Physician Sheila Barros RT Monitor Giorgi Pandey RN Nurse Tracy Kumar RT Scrub Procedure Data Cath Procedure Fluoroscopy Diagnostic fluoroscopy Total fluoroscopy Time: 1.8 time: 1.8 min min Diagnostic fluoroscopy Total fluoroscopy dose: 376 dose: 376 mGy mGy Contrast Material Contrast Material Type Amount (ml) Isovue 300 59 Entry Location Entry Primary Successful Side Size Upsize Upsize Entry Closure Succes sful Closure Location (Fr) 1 (Fr) 2 (Fr) Remarks Device Remarks Femoral Right 5 Fr Exoseal artery Estimated blood loss: 5 ml Diagnostic catheters Device Type Used For End Catheter Placement MULTIPACK JL 4.0 5Fr Left Coronary catheter Angiography MULTIPACK 3DRC 5Fr Right Coronary catheter Angiography MULTIPACK Pigtail 5 Fr LV Angiography catheter Procedure Complications No complications Procedure Medications Medication Administration Route Dosage 0.9% NaCl I.V. 100 ml/hr Oxygen etCO2 Nasal cannula 2 l/min Heparin Flush Bag added to field 2 bags (1000units/500ml NS) Lidocaine 2% added to field 20 Versed I.V. 1 mg Fentanyl I.V. 50 mcg Hemodynamics Rest HGB: 15 (g/dl) Heart Rate: 53 (bpm) Pressure Samples Time Site Value (mmHg) Purpose Heart Use Rate(bpm) 15:39 LV 152/-3,25 Snapshot 55 15:40 AO (106) Pullback 70 15:40 LV 162/-4,22 Pullback 70 Gradients Valve Time Site 1 Site Mean SEP/DFP Peak To Heart Use 2 (mmHg) (sec/min) Peak Rate (mmHg) (bpm) Aortic 15:40 LV AO 10 25 70 162/-4,22 (106) Calculations Valve P-P Mean Valve Index Valve Source Name Gradient Area Flow (cm2) Aortic 10 10 Snapshots Pre Cath Intra NCS Post Cath Vital Signs Time Heart Resp SPO2 etCO2 NIBP (mmHg) Rhythm Pain Sedation Rate (ipm) (%) (mmHg) Status Level (bpm) 15:20:35 71 18 96 0 126/81(107) NSR 0 (11) 10(A) , No pain 15:24:35 54 12 96 2.2 104/77(88) NSR 0 (11) 10(A) , No pain 15:29:36 53 12 97 0 122/79(94) NSR 0 (11) 10(A) , No pain 15:33:50 57 14 96 12.7 112/66(89) NSR 0 (11) 10(A) , No pain 15:37:54 53 15 97 9.7 127/82(115) NSR 0 (11) 9(A) , No pain 15:42:57 53 13 98 22.5 144/78(114) NSR 0 (11) 9(A) , No pain 15:47:13 52 15 99 25.5 125/69(100) NSR 0 (11) 9(A) , No pain Medications Time Medication Route Dose Verified Delivered Reason Notes Eff ectiveness by by 15:21:08 0.9% NaCl I.V. 100 Roly Roly Per ml/hr Julio iKm physician RN RN 15:21:17 Oxygen etCO2 2 Roly Roly Per Nasal l/min Julio Kim physician cannula RN RN 15:21:28 Heparin Flush added 2 Roly Roly used for Bag to bags Lorigan Julio procedure (1000units/500ml field RN RN NS) 15:21:43 Lidocaine 2% added 20ml Roly Roly for local to vial Lorigan Lorigan anesthetic field RN RN 15:28:50 Versed I.V. 1 mg Roly Roly for Lorigan Lorigan sedation RN RN 15:28:58 Fentanyl I.V. 50 Roly Roly for mcg Lorigan Lorigan sedation RN central office maintainer Log Time Note 15:03:30 Diagnostic Cath Status : Elective 15:03:55 Giorgi Pandey RN sent for patient. Start room use. 15:03:56 Time tracking: Regular hours 15:04:00 Plan of Care:Hemodynamics will remain stable., Cardiac rhythm will remain stable., Comfort level will be maintained., Respiratory function will remain adequate., Patient/ family verbilizes understanding of procedure., Procedure tolerated without complication., Recovers from procedure without complications.. 15:06:26 Admit Source: Other 15:06:32 Insurance Payor : Medicare 15:06:55 Lab Result : Creatinine 0.8 mg/dl 15:06:55 Lab Result : BUN 12 mg/dl 15:06:55 Lab Result : Hemoglobin 15 g/dl 15:09:57 Patient received from Pre/Post Procedure Room to CCL 2 Alert and oriented. Tansferred to table in Supine position. 15:09:58 Warm blankets applied, and gala hugger turned on for patient comfort. 15:09:58 Correct patient and procedure confirmed by team. 15:10:00 Signed procedure consent form obtained from patient. 15:10:01 ECG and BP/O2 sat monitors applied to patient. 15:19:33 Vital chart was started 15:19:34 Baseline sample Acquired. 15:19:38 Rhythm: sinus rhythm 15:19:40 Full Disclosure recording started 15:19:44 H&P Date Dictated: 11/11/2017 Within 30 days and on chart., H&P Addendum completed by physician on day of procedure. (MUST COMPLETE FOR ALL OUTPATIENTS). 15:19:46 Pre-procedure instructions explained to patient. 15:19:46 Pre-op teaching completed and patient verbalized understanding. 15:19:47 Family in waiting room. 15:19:49 Patient NPO since Midnight. 15:19:51 Is the patient allergic to Iodine/contrast media? No. 15:19:52 Was the patient premedicated? No 15:19:53 Is patient on blood thinner?No 15:19:56 Patient diabetic? No. 15:19:59 Previous problem with sedation/anesthesia? No ? 15:20:00 Snore? Yes 15:20:02 Sleep apnea? Yes 15:20:03 Deviated septum? No 15:20:04 Opens mouth fully? Yes 15:20:05 Sticks out tongue? Yes 15:20:12 Airway obstruction? Yes copd asthma 15:20:15 Dentures? No ? 15:20:19 Pre procedure: right dorsailis pedis pulse 2+ Normal; easily identifiable; not easily obliterated 15:20:23 Pre procedure: left dorsailis pedis pulse 2+ Normal; easily identifiable; not easily obliterated 15:20:25 Patient pain scale 0/10 ?. 15:20:32 IV patent on arrival in left forearm with 0.9% NaCl at [facility]. 15:20:35 Lab results completed and on chart. 15:20:40 Right groin area was prepped with chlora-prep and draped in sterile fashion 15:20:41 Alarms reviewed by R. N. 15:20:41 Sharps counted by scrub and verified by R.N. 15:21:08 0.9% NaCl 100 ml/hr I.V. was administered by Roly Kim RN; Per physician; 15:21:17 Oxygen 2 l/min etCO2 Nasal cannula was administered by Roly Kim RN; Per physician; 15:21:19 Physician arrived 15:21:20 --------ALL STOP TIME OUT------ 15:21:20 Final Timeout: patient, procedure, and site verified with staff and physician. All members of the team are in agreement. 15:21:23 Right groin site verified by team. 15:21:25 Physical assessment completed. ASA score P 2 - A patient with mild systemic disease as per Kyle Richardson MD. 15:21:28 Heparin Flush Bag (1000units/500ml NS) 2 bags added to field was administered by Roly Kim RN; used for procedure; 15::28 Sedation plan: IV Moderate Sedation Medication:Versed, Fentanyl 15:21:33 Use device set Femoral Dx 15:21:34 ACIST Syringe (86343) opened to sterile field. 15:21:35 Bag Decanter (2002S) opened to sterile field. 15:21:36 Medline Cath Pack ([id number]) opened to sterile field. 15:21:37 DIAGNOSTIC WIRE .035 260cm J wire (666990) opened to sterile field. 15:21:38 ACIST Hand Control (23107) opened to sterile field. 15:21:39 ACIST Manifold (16074) opened to sterile field. 15:21:39 DIAGNOSTIC Multipack 5Fr catheter set ([id number]) opened to sterile field. 15:21:40 Tegaderm 4 x 4 (1626W) opened to sterile field. 15:21:43 Lidocaine 2% 20ml vial added to field was administered by Roly Kim RN; for local anesthetic; 15:22:23 SHEATH 5Fr Prelude ([id number]) opened to sterile field. 15:27:36 Procedure started. 15:28:23 Local anesthetic to right femoral artery with Lidocaine 2% by Kyle Richardson MD.INITIAL ACCESS ONLY 15:28:50 Versed 1 mg I.V. was administered by Roly Kim RN; for sedation; 15::52 A 5 Fr sheath was inserted into the Right Femoral artery 15:28:58 Fentanyl 50 mcg I.V. was administered by Roly Kim RN; for sedation; 15:30:17 A MULTIPACK JL 4.0 5Fr catheter was advanced over the wire and used for Left Coronary Angiography. 15:34:50 LCA angiography performed. 15:34:53 Injector settings: Ml/sec: 3, Volume: 6, 15:36:29 Catheter removed. 15:36:42 A MULTIPACK 3DRC 5Fr catheter was advanced over the wire and used for Right Coronary Angiography. 15:37:16 RCA angiography performed. 15:37:20 Injector settings: Ml/sec: 3, Volume: 6, 15:38:37 Catheter removed. 15:39:23 A MULTIPACK Pigtail 5 Fr catheter was advanced over the wire and used for LV Angiography. 15:39:48 LV hemodynamics recorded. 15:39:50 LV gram done using ZELAYA 15:39:53 Injector settings: Ml/sec: 5, Volume: 15, 15:40:04 EF : 45 % 15:40:22 Catheter removed. 15:46:25 EXOSEAL 5Fr (EX500) opened to sterile field. 15:47:34 Sheath removed intact; hemostasis achieved with Exoseal to the Right Femoral artery. 15:47:36 Procedure ended.(Physican Out) 15:47:50 Fluoroscopy time 01.80 minutes. 15:47:58 Flurop Dose total: 376 15:47:58 Fluoroscopy dose: 376 mGy 15:48:26 Contrast amount:Isovue 300 59ml. 15:48:28 Sharps counted by scrub and verified by R.N. 15:49:03 Insertion/operative site no bleeding no hematoma. 15:49:07 Post-op/insertion site Right Femoral artery dressed using a 4 x 4 and Tegaderm. 15:49:19 Post right femoral artery:stable 15:49:22 Post procedure rhythm: unchanged. 15:49:24 Estimated blood loss: 5 ml 15:49:26 Post procedure instruction explained to patient.Patient verbalizes understanding. 15:49:26 Patient needs reinforcement of post procedure teaching. 15:49:39 Procedure type changed to Cath procedure, Diagnostic procedure, LHC, LHC w/Coronaries, Sedation Charges, Moderate Sedation up to 15 minutes 15:49:39 Procedure and supply charges have been captured, reviewed, submitted and are correct. 15:49:43 Procedure Complication : No complications 15:49:45 Vital chart was stopped 15:49:46 See physician's report for complete and final results. 15:49:55 Report given to Pre/Post Procedure Room. 15:50:21 Patient transfered to Pre/Post Procedure Room with Stretcher. 15:50:28 Procedure ended. 15:50:28 Full Disclosure recording stopped 15:50:35 End room use (Document Last) Device Usage Item Name Manufacture Quantity Catalog Hospital Part Current Minimal Lot# / Number Charge Number Stock Stock Serial# Code ACIST Acist 1 81409 109303 507024 195216 20 Syringe Medical (44639) Systems Inc Bag Decanter Microtek 1 2001S 248063 16743 165010 5 (2001S) Medical Inc. Medline Cath Cardinal 1 [id number] 507389 48436 831470 5 Pack Health ([id number]) DIAGNOSTIC St Kelvin 1 964687 704924 268991 201931 30 WIRE .035 260cm J wire (726556) ACIST Hand Acist 1 79765 933015 750687 199977 5 Control Medical (47430) Systems Inc ACIST Acist 1 00907 822552 535298 339293 5 Manifold Medical (94323) Systems Inc DIAGNOSTIC Cardinal 1 BU9601 437134 87822 277776 30 Multipack Health 5Fr catheter set ([id number]) Tegaderm 4 x 3M 1 1626W 082346 276229 644454 5 4 (1626W) SHEATH 5Fr Merit 1 [id number] 803327 271951 279337 5 Prelude Medical ([id number]) MULTIPACK JL Cardinal 1 407750 5 4.0 5Fr Health catheter MULTIPACK Cardinal 1 806784 5 3DRC 5Fr Health catheter MULTIPACK Cardinal 1 260480 5 Pigtail 5 Fr Health catheter EXOSEAL 5Fr Cardinal 1 EX500 926222 712157 977594 10 (EX500) Health Signature [place] Stage Time Signature Unsigned Intra-Procedure 11/11/2017 Sheila Barros 3:52:21 PM RT(R) Signatures Monitor : Sheila Barros RT Signature : Date : Time : [facility] [address] [place] [address]
[2017-11-11] MEDS ORDERED: PRAVACHOL40 MG PO (12:53)
[2017-11-11] MEDS ORDERED: MAG-OX 400 MG400 MG PO (12:54)
[2017-11-11 13:05] VITALS: BP 131/77; Ht 180.3 cm; Wt 80.9 kg
[2017-11-11 13:30] LABS: BASOPHILS 0.2 % (0-2); EOSINOPHILS 1.7 % (0-7); HEMATOCRIT 45.1 % (42.0-54.0); IMMATURE GRANULOCYTES 0.1 % (0-5); LYMPHOCYTES 24.6 % (15-50); MCH 34.2 pg (26.0-34.0); MCHC 33.3 g/dL (31.0-37.0); MCV 102.7 fL (80.0-100.0); MEAN PLATELET VOLUME 10.1 fL (7.4-10.4); MONOCYTES 10.6 % (2-11); NEUTROPHILS 62.8 % (40-80); PLATELET COUNT 254 10x3/uL (130-400); RBC 4.39 10x6/uL (4.20-6.10); RDW 12.8 % (11.5-14.5); WBC 8.9 10x3/uL (4.8-10.8)
[2017-11-11 13:33] LABS: CALC OSMOLALITY 283 mosm/kg (275-300); CALCIUM 9.2 mg/dL (8.5-10.1); CARBON DIOXIDE 27.4 mmol/L (21.0-32.0); CHLORIDE - SERUM 105 mmol/L (98-107); CREATININE - SERUM 0.8 mg/dL (0.6-1.3); GLUCOSE 89 mg/dL (74-106); POTASSIUM - SERUM 4.6 mmol/L (3.5-5.1); SODIUM 143 mmol/L (136-145); UREA NITROGEN 12 mg/dL (7-18); eGFR NON AFRICAN AMERICAN > 90 mL/min (90-120)
== END 2017-11-11 18:05 | disposition home or self-care (01) ==
LOC: D.CATH 11:41
PROVIDERS: Internal Medicine Cardiovascular Disease
DX: I25.10 Atherosclerotic heart disease of native coronary artery without angina pectoris (principal); R94.30 Abnormal result of cardiovascular function study, unspecified; Z01.812 Encounter for preprocedural laboratory examination

== ENCOUNTER 2017-12-09 10:36 | Outpatient (CLI) | payer MEDICARE, BC ==
[~2017-12-09] VITALS: Ht 180.3 cm; Wt 79.5 kg
--- NOTE | ~2017-12-09 | HEMODYNAMI ---
PATIENT:LIOR CARLTON MEDICAL RECORD: [id number] : 51 LOCATION:[facility] ADMISSION DATE: 12/09/17 Generatedon:12/09/201713:41 Patient name: LIOR CARLTON Patient #: [id number] SSN: : 1955 Date of study: 12/09/2017 Page: Of Hemodynamic Procedure Report Patient Data Patient Demographics Procedure consent was obtained First Name: LIOR Gender: Male Last Name: BIANKA : 1955 Middle Initial: ADONIS Age: 62 year(s) Patient #: [id number] Race: Additional ID: [id number] Contact details [address]: [address] [place] [address] State: [place] City: [place] Zip code: [address] Past Medical History Allergies: No known allergies Admission Admission Data Admission Date: 12/09/2017 Admission Time: 10:36 Procedure Procedure Types Cath Procedure Diagnostic Procedure Sedation Charges Moderate Sedation up to 15 minutes PCI Procedure Coronary Stent Coronary Stent Initial Procedure Description Procedure Date Procedure Date: 12/09/2017 Procedure Start Time: 13:17 Procedure End Time: 13:41 Procedure Staff Name Function Kyle Kerr MD Performing Physician Lyla Olmos RT Monitor Giorgi Pandey RN Nurse Hira Jordan RT Scrub Procedure Data Cath Procedure Fluoroscopy Diagnostic fluoroscopy Total fluoroscopy Time: 3.7 time: 3.7 min min Diagnostic fluoroscopy Total fluoroscopy dose: 209 dose: 209 mGy mGy Contrast Material Contrast Material Type Amount (ml) Isovue 370 74 Entry Location Entry Primary Successful Side Size Upsize Upsize Entry Closure Succes sful Closure Location (Fr) 1 (Fr) 2 (Fr) Remarks Device Remarks Femoral Right 6 Fr Exoseal artery Short Estimated blood loss: 10 ml Procedure Complications No complications Procedure Medications Medication Administration Route Dosage Oxygen NC 2 l/min Lidocaine 2% added to field 20 Heparin Flush Bag added to field 2 bags (1000units/500ml NS) 0.9% NaCl I.V. 100 ml/hr Versed I.V. 1 mg Fentanyl I.V. 50 mcg Heparin Bolus I.V. 8000 units Nitroglycerin IC/IA I.C. 100 mcg Versed I.V. 1 mg Fentanyl I.V. 50 mcg Versed I.V. 0.5 mg Fentanyl I.V. 25 mcg Nitroglycerin IC/IA I.C. 100 mcg Plavix P.O. 600 mg Hemodynamics Rest Heart Rate: 50 (bpm) Snapshots Pre Cath Intra NCS Post Cath Vital Signs Time Heart Resp SPO2 etCO2 NIBP (mmHg) Rhythm Pain Sedation Rate (ipm) (%) (mmHg) Status Level (bpm) 13:01:39 53 15 99 0 Measuring NSR 0 (11) 10(A) , No pain 13:02:09 52 25 97 0 135/93(111) NSR 0 (11) 10(A) , No pain 13:06:29 50 16 98 32.2 126/79(97) NSR 0 (11) 10(A) , No pain 13:10:47 48 16 97 37.4 123/71(103) NSR 0 (11) 10(A) , No pain 13:15:03 48 16 96 37.4 123/67(85) NSR 0 (11) 10(A) , No pain 13:19:09 50 14 96 40.4 111/74(91) NSR 0 (11) 9(A) , No pain 13:23:25 50 22 97 41.2 123/69(89) NSR 0 (11) 9(A) , No pain 13:27:45 55 16 95 38.9 109/68(86) NSR 0 (11) 9(A) , No pain 13:31:55 55 24 96 39.6 130/82(105) NSR 0 (11) 9(A) , No pain 13:36:15 56 18 96 33.7 126/76(110) NSR 0 (11) 10(A) , No pain 13:41:14 52 12 97 32.9 144/80(121) NSR 0 (11) 9(A) , No pain Medications Time Medication Route Dose Verified Delivered Reason Notes Effectiveness by by 13:01:43 Oxygen NC 2 Kyle Buffie used for l/min Dylan Pandey advocacy director 13:01:49 Lidocaine 2% added 20ml Kyle Kyle for local to vial Dylan Kerr MD anesthetic field 13:01:57 Heparin Flush added 2 Kyle Kyle used for Bag to bags Dylan Kerr MD procedure (1000units/500ml field NS) 13:02:10 0.9% NaCl I.V. 100 Kyle Buffie Per physician ml/hr Dylan Pandey RN 13:16:02 Versed I.V. 1 mg Kyle Buffie for sedation Dylan Pandey RN 13:16:10 Fentanyl I.V. 50 Kyle Buffie for sedation mcg Dylan Pandey RN 13:20:14 Versed I.V. 1 mg Kyle Buffie for sedation Dylan Pandey RN 13:20:19 Fentanyl I.V. 50 Kyle Buffie for sedation mcg Dylan Pandey RN 13:22:54 Heparin Bolus I.V. 8,000 Kyle Buffie for verifi ed units Dylan Pandey RN anticoagulation with dr kerr 13:23:06 Nitroglycerin I.C. 100 Kyle Kyle for IC/IA mcg Dylan Kerr MD vasodilation 13:27:53 Versed I.V. 0.5 Kyle Buffie for sedation mg Dylan Pandey RN 13:27:58 Fentanyl I.V. 25 Kyle Buffie for sedation mcg Dylan Pandey RN 13:31:35 Nitroglycerin I.C. 100 Kyle Kyle for IC/IA mcg Dylan Kerr MD vasodilation 13:39:43 Plavix P.O. 600 Kyle Buffie for mg Dylan Pandey RN antiplatelet therapy Procedure Log Time Note 12:47:29 Time tracking: Regular hours (M-F 7:00 - 5:00) 12:47:33 Plan of Care:Hemodynamics will remain stable., Cardiac rhythm will remain stable., Comfort level will be maintained., Respiratory function will remain adequate., Patient/ family verbilizes understanding of procedure., Procedure tolerated without complication., Recovers from procedure without complications.. 12:47:39 Lyla Counts RT(R) sent for patient. Start room use. 12:56:40 Patient received from Pre/Post Procedure Room to CCL 3 Alert and oriented. Tansferred to table in Supine position. 12:56:41 Warm blankets applied, and gala hugger turned on for patient comfort. 12:56:41 Correct patient and procedure confirmed by team. 12:56:43 Signed procedure consent form obtained from patient. 12:56:43 ECG and BP/O2 sat monitors applied to patient. 12:59:48 Vital chart was started 13:01:43 Oxygen 2 l/min NC was administered by Giorgi Pandey RN; used for procedure; 13:01:49 Lidocaine 2% 20ml vial added to field was administered by Kyle Kerr MD; for local anesthetic; 13:01:57 Heparin Flush Bag (1000units/500ml NS) 2 bags added to field was administered by Kyle Kerr MD; used for procedure; 13:02:10 0.9% NaCl 100 ml/hr I.V. was administered by Giorgi Pandey RN; Per physician; 13:04:48 Baseline sample Acquired. 13:04:55 Rhythm: sinus bradycardia 13:05:08 H&P Date Dictated: 11/27/2017 Within 30 days and on chart., H&P Addendum completed by physician on day of procedure. (MUST COMPLETE FOR ALL OUTPATIENTS). 13:05:09 Pre-procedure instructions explained to patient. 13:05:09 Pre-op teaching completed and patient verbalized understanding. 13:05:11 Family in patients room. 13:05:13 Patient NPO since Midnight. 13:05:18 Patient allergic to No known allergies 13:05:20 Is the patient allergic to Iodine/contrast media? No. 13:05:22 Is patient on blood thinner?No 13:05:24 Patient diabetic? No. 13:05:27 Previous problem with sedation/anesthesia? No ? 13:05:29 Snore? Yes 13:05:31 Sleep apnea? Yes 13:05:32 Deviated septum? No 13:05:33 Opens mouth fully? Yes 13:05:34 Sticks out tongue? Yes 13:05:37 Airway obstruction? No ? 13:05:39 Dentures? No ? 13:05:42 Pre procedure: right dorsailis pedis pulse 2+ Normal; easily identifiable; not easily obliterated 13:05:44 Patient pain scale 0/10 ?. 13:05:56 IV patent on arrival in left forearm with 0.9% NaCl at [facility]. 13:05:59 Lab results completed and on chart. 13:06:06 Right groin area was prepped with chlora-prep and draped in sterile fashion 13:06:06 Alarms reviewed by R. N. 13:06:07 Sharps counted by scrub and verified by R.N. 13:09:28 Use device set CATH PACK 13:09:40 ACIST Syringe (05283) opened to sterile field. 13:09:40 ACIST Hand Control (44052) opened to sterile field. 13:09:41 ACIST Manifold (56404) opened to sterile field. 13:09:41 Medline Cath Pack ([id number]) opened to sterile field. 13:09:42 Bag Decanter (2002S) opened to sterile field. 13:09:42 DIAGNOSTIC WIRE .035 260cm J wire (352355) opened to sterile field. 13:09:43 PERCUTANEOUS ENTRY 19GA needle opened to sterile field. 13:09:48 Use device set KERR PCI 13:09:50 TUBING High Pressure Extension Tubing (Kerr) ([id number]) opened to sterile field. 13:09:51 INFLATOR Merit BasixCompak (NT4115) opened to sterile field. 13:09:53 BMW 300cm [place] 2 J wire ([id number]) opened to sterile field. 13:09:55 SHEATH Prelude 6Fr 0.035 (NLI-8U-06-035) opened to sterile field. 13:12:10 Final Timeout: patient, procedure, and site verified with staff and physician. All members of the team are in agreement. 13:12:12 Right groin site verified by team. 13:12:14 Physical assessment completed. ASA score P 2 - A patient with mild systemic disease as per Kyle Kerr MD. 13:12:16 Sedation plan: IV Moderate Sedation Medication:Versed, Fentanyl 13:15:35 Zero performed for pressure channel P1 13:15:40 Zero performed for pressure channel P1 13:15:44 Zero performed for pressure channel P1 13:16:02 Versed 1 mg I.V. was administered by Giorgi Pandey RN; for sedation; 13:16:10 Fentanyl 50 mcg I.V. was administered by Giorgi Pandey RN; for sedation; 13:17:33 Procedure started. 13:17:33 Full Disclosure recording started 13:17:42 Local anesthetic to right femoral artery with Lidocaine 2% by Kyle Kerr MD.INITIAL ACCESS ONLY 13:18:48 A 6 Fr Short sheath was inserted into the Right Femoral artery 13:20:14 Versed 1 mg I.V. was administered by Giorgi Pandey RN; for sedation; 13:20:19 Fentanyl 50 mcg I.V. was administered by Giorgi Pandey RN; for sedation; 13:21:03 6 Fr XBLAD 3.5 guide catheter was inserted over the wire 13:22:54 Heparin Bolus 8,000 units I.V. was administered by Giorgi Pandey RN; for anticoagulation; verified with dr kerr 13:23:06 Nitroglycerin IC/IA 100 mcg I.C. was administered by Kyle Kerr MD; for vasodilation; 13:25:41 BMW wire advanced. 13:27:53 Versed 0.5 mg I.V. was administered by Giorgi Pandey RN; for sedation; 13:27:58 Fentanyl 25 mcg I.V. was administered by Giorgi Pandey RN; for sedation; 13:28:45 Place stent Inflation Number: 1 A ROCKY OTW 3.0 x 18 stent ([id number]) was prepped and advanced across the Mid LAD. The stent was deployed at 12 BEVERLY for 0:08 (min:sec). 13:29:29 Inflation number: 1 The stent balloon was then re-inflated across the Prox LAD to 10 BEVERLY for 0:15 (min:sec). 13:30:46 Inflation number: 2 The stent balloon was then re-inflated across the Prox LAD to 13 BEVERLY for 0:16 (min:sec). 13:31:35 Nitroglycerin IC/IA 100 mcg I.C. was administered by Kyle Kerr MD; for vasodilation; 13:33:05 Stent catheter was removed intact over wire. 13:33:21 Wire removed. 13:33:22 Guide catheter removed. 13:33:29 Sheath removed intact; hemostasis achieved with Exoseal to the Right Femoral artery. 13:33:33 Procedure ended.(Physican Out) 13:33:54 Fluoroscopy time 03.70 minutes. 13:34:04 Flurop Dose total: 209 13:34:04 Fluoroscopy dose: 209 mGy 13:34:07 Contrast amount:Isovue 370 74ml. 13:34:08 Sharps counted by scrub and verified by R.N. 13:34:10 Insertion/operative site no bleeding no hematoma. 13:34:14 Post-op/insertion site Right Femoral artery dressed using a 4 x 4 and Tegaderm. 13:34:20 Post right femoral artery:stable, clean and dry 13:34:21 Post Procedure Pulses reassessed and unchanged 13:34:25 Post-procedure physical assessment completed. ASA score P 2 - A patient with mild systemic disease as per Kyle Kerr MD. 13:34:28 Post procedure rhythm: unchanged. 13:34:31 Estimated blood loss: 10 ml 13:34:32 Post procedure instruction explained to patient.Patient verbalizes understanding. 13:34:33 Patient needs reinforcement of post procedure teaching. 13:34:38 Procedure Complication : No complications 13:34:40 See physician's report for complete and final results. 13:35:09 Procedure type changed to Cath procedure, Diagnostic procedure, Sedation Charges, Moderate Sedation up to 15 minutes, PCI procedure, Coronary Stent, Coronary Stent Initial 13:35:20 EXOSEAL 6Fr (EX600) opened to sterile field. 13:35:27 Tegaderm 4 x 4 (1626W) opened to sterile field. 13:37:01 Procedure and supply charges have been captured, reviewed, submitted and are correct. 13:39:43 Plavix 600 mg P.O. was administered by Giorgi Pandey RN; for antiplatelet therapy; 13:40:53 Vital chart was stopped 13:40:56 Report given to Pre/Post Procedure Room. 13:40:58 Patient transfered to Pre/Post Procedure Room with Stretcher. 13:41:08 Procedure ended. 13:41:08 Full Disclosure recording stopped 13:41:11 End room use (Document Last) Intervention Summary Intervention Notes Time ActionType Lesion and Equipment Action# Pressure Duration Attributes Used 13:28:45 Place stent Mid LAD ROCKY OTW 3.0 1 12 00:08 x 18 stent ([id number]) 13:29:29 Reinflate Prox LAD ROCKY OTW 3.0 1 10 00:15 stent x 18 stent balloon ([id number]) 13:30:46 Reinflate Prox LAD ROCKY OTW 3.0 2 13 00:16 stent x 18 stent balloon ([id number]) Device Usage Item Name Manufacture Quantity Catalog Hospital Part Current M inimal Lot# / Number Charge Number Stock Stock Serial# Code ACIST Syringe Acist 1 44141 000809 015201 612535 2 0 (31796) [employer] Inc ACIST Hand Acist 1 18944 826422 894173 326612 5 Control (96992) [employer] Inc ACIST Manifold Acist 1 82406 898320 862721 471047 5 (29985) Medical Systems Inc Medline Cath Cardinal 1 [id number] 195526 17745 341399 5 Pack Health ([id number]) Bag Decanter Microtek 1 2002S 449264 79979 405847 5 (2001S) Medical Inc. DIAGNOSTIC WIRE St Kelvin 1 362346 844317 325584 725580 3 0 .035 260cm J wire (053335) PERCUTANEOUS Cook Medical 1 J53645 462430 746977 5 ENTRY 19GA needle TUBING High Merit 1 [id number] 591199 37270 050441 1 0 Pressure Medical Extension Tubing (Kerr) ([id number]) INFLATOR Merit Merit 1 BR2546 737362 955186 761294 1 5 BasixCompak Medical (TC9322) BMW 300cm [place]coll 1 [id number] 270022 133390 040529 5 [place] 2 J Vascular wire ([id number]) SHEATH Prelude Merit 1 ZRK-5R-60-35 523844 0945136 103882 5 6Fr 0.035 Medical (HAG-4W-68-035) ROCKY OTW 3.0 x Medtronic 1 [id number] 771590 8166851 475562 5 [id number] 18 stent ([id number]) EXOSEAL 6Fr Cardinal 1 EX600 824304 529134 546796 1 0 (EX600) Health Tegaderm 4 x 4 3M 1 1626W 973979 610242 755018 5 (1626W) Signature Audit [place] Stage Time Signature Unsigned Intra-Procedure 12/09/2017 Lyla 1:41:34 PM Counts RT(R) Signatures Monitor : Lyla Signature : Counts RT Date : Time : [id number] [place] [address]
[~2017-12-09 10:36] MED LIST changes: +MAG-OX 400 MG400 MG PO; +PRAVACHOL40 MG PO
[2017-12-09] MEDS ORDERED: PROZAC20 MG PO (11:06)
[2017-12-09 11:16] VITALS: BP 143/81; Ht 180.3 cm; Wt 79.5 kg
[2017-12-09 11:25] LABS: BASOPHILS 0.2 % (0-2); EOSINOPHILS 1.3 % (0-7); HEMATOCRIT 44.9 % (42.0-54.0); HEMOGLOBIN 14.9 g/dL (13.5-17.5); IMMATURE GRANULOCYTES 0.2 % (0-5); LYMPHOCYTES 23.8 % (15-50); MCH 33.9 pg (26.0-34.0); MCHC 33.2 g/dL (31.0-37.0); MCV 102.3 fL (80.0-100.0); MEAN PLATELET VOLUME 9.8 fL (7.4-10.4); MONOCYTES 13.8 % (2-11); NEUTROPHILS 60.7 % (40-80); PLATELET COUNT 268 10x3/uL (130-400); RBC 4.39 10x6/uL (4.20-6.10); RDW 12.8 % (11.5-14.5); WBC 9.4 10x3/uL (4.8-10.8)
[2017-12-09 11:40] LABS: CALC OSMOLALITY 276 mosm/kg (275-300); CALCIUM 9.9 mg/dL (8.5-10.1); CARBON DIOXIDE 27.7 mmol/L (21.0-32.0); CHLORIDE - SERUM 104 mmol/L (98-107); CREATININE - SERUM 0.8 mg/dL (0.6-1.3); GLUCOSE 105 mg/dL (74-106); POTASSIUM - SERUM 4.4 mmol/L (3.5-5.1); SODIUM 139 mmol/L (136-145); UREA NITROGEN 11 mg/dL (7-18); eGFR NON AFRICAN AMERICAN > 90 mL/min (90-120)
[2017-12-09] MEDS ORDERED: PLAVIX75 MG PO (14:17)
== END 2017-12-09 18:00 | disposition home or self-care (01) ==
LOC: D.CATH 10:36
PROVIDERS: Internal Medicine Cardiovascular Disease
DX: I25.119 Atherosclerotic heart disease of native coronary artery with unspecified angina pectoris (principal); I10 Essential (primary) hypertension; Z01.812 Encounter for preprocedural laboratory examination

== ENCOUNTER → 2019-03-14 10:53 | Outpatient (CLI) | payer MEDICARE, BC ==
[2017-12-09 11:16] VITALS: BMI 24.4
[~2019-03-14 10:53] MED LIST changes: +PROZAC20 MG PO
== END | disposition home or self-care (01) ==
LOC: D.HCCARDIO 10:53
PROVIDERS: ATTEND Internal Medicine Cardiovascular Disease
DX: I25.10 Atherosclerotic heart disease of native coronary artery without angina pectoris (principal)